=== PATIENT | female | born 1995 | race Caucasian/White ===

== ENCOUNTER 2018-03-24 22:57 | Emergency (ER) | payer OTHER ==
[~2018-03-24] VITALS: Ht 172.7 cm; Wt 103.0 kg
[2018-03-24 23:10] VITALS: Ht 172.7 cm; Wt 103.0 kg
[2018-03-25 02:32] VITALS: BP 124/74
== END 2018-03-25 02:32 | disposition home or self-care (01) ==
LOC: ED 22:57
DX: J06.9 Acute upper respiratory infection, unspecified (principal)

== ENCOUNTER 2018-08-04 14:51 | Emergency (ER) | payer OTHER ==
[2018-08-04 14:53] VITALS: Ht 172.7 cm
[2018-08-04 16:04] VITALS: BP 136/78
== END 2018-08-04 16:04 | disposition home or self-care (01) ==
LOC: ED 14:51
DX: T78.40XA Allergy, unspecified, initial encounter (principal); X58.XXXA Exposure to other specified factors, initial encounter
CPT/HCPCS: J1200; J2930; J3490

== ENCOUNTER 2018-08-09 11:51 | Emergency (ER) | payer OTHER ==
[~2018-08-09] VITALS: Ht 172.7 cm; Wt 106.1 kg
[2018-08-09 11:54] VITALS: Ht 172.7 cm; Wt 106.1 kg
[2018-08-09 13:51] VITALS: BP 149/82
== END 2018-08-09 13:51 | disposition home or self-care (01) ==
LOC: ED 11:51
DX: J02.9 Acute pharyngitis, unspecified (principal)

== ENCOUNTER 2018-09-27 19:38 | Emergency (ER) | payer OTHER ==
[~2018-09-27] VITALS: Ht 172.7 cm; Wt 97.1 kg
[2018-09-27 19:45] VITALS: Ht 172.7 cm; Wt 97.1 kg
[2018-09-27 20:42] VITALS: BP 146/78
== END 2018-09-27 20:42 | disposition home or self-care (01) ==
LOC: ED 19:38
DX: M25.512 Pain in left shoulder (principal); M54.2 Cervicalgia

== ENCOUNTER 2018-12-08 19:33 | Emergency (ER) | payer OTHER ==
[~2018-12-08] VITALS: Ht 172.7 cm; Wt 106.6 kg
[2018-12-08 19:36] VITALS: Ht 172.7 cm; Wt 106.6 kg
[2018-12-08 20:49] VITALS: BP 142/77
== END 2018-12-08 20:49 | disposition home or self-care (01) ==
LOC: ED 19:33
DX: S93.402A Sprain of unspecified ligament of left ankle, initial encounter (principal); J45.909 Unspecified asthma, uncomplicated; X58.XXXA Exposure to other specified factors, initial encounter; Y93.89 Activity, other specified; Y92.89 Other specified places as the place of occurrence of the external cause; Y99.8 Other external cause status

== ENCOUNTER 2019-04-09 15:01 | Emergency (ER) | payer OTHER ==
[~2019-04-09] VITALS: Ht 172.7 cm; Wt 99.3 kg
[2019-04-09 15:06] VITALS: Ht 172.7 cm; Wt 99.3 kg
[2019-04-09 15:51] VITALS: BP 150/90
== END 2019-04-09 15:51 | disposition home or self-care (01) ==
LOC: ED 15:01
DX: J11.1 Influenza due to unidentified influenza virus with other respiratory manifestations (principal)

== ENCOUNTER 2019-05-21 13:26 | Emergency (ER) | payer OTHER ==
[~2019-05-21] VITALS: Ht 172.7 cm; Wt 98.9 kg
[2019-05-21 13:30] VITALS: BP 146/82; Ht 172.7 cm; Wt 98.9 kg
== END 2019-05-21 17:13 | disposition left against medical advice (07) ==
LOC: ED 13:26
DX: Z53.21 Procedure and treatment not carried out due to patient leaving prior to being seen by health care provider (principal)

== ENCOUNTER 2019-09-29 13:43 | Emergency (ER) | payer OTHER, SELFPAY ==
[~2019-09-29] VITALS: Ht 172.7 cm; Wt 95.3 kg
[2019-09-29 17:18] VITALS: Ht 172.7 cm; Wt 95.3 kg
[2019-09-29 18:30] VITALS: BP 117/79
== END 2019-09-29 18:33 | disposition home or self-care (01) ==
LOC: ED 13:43
DX: Z03.818 Encounter for observation for suspected exposure to other biological agents ruled out (principal)
CPT/HCPCS: U0003-CS